=== PATIENT | male | born 1975 | race Caucasian/White ===

== ENCOUNTER 2018-07-03 09:59 | Emergency (ER) | payer OTHER ==
[~2018-07-03] VITALS: Ht 170.2 cm; Wt 87.2 kg
[2018-07-03] MEDS ORDERED: METFORMIN HCL500 MG PO (10:59)
[2018-07-03] MEDS ORDERED: LISINOPRIL10 MG PO (10:59)
[2018-07-03] MEDS ORDERED: METOPROLOL TART25 MG PO (10:59)
[2018-07-03] MEDS ORDERED: HIBICLENS120 ML TOP (10:59)
[2018-07-03] MEDS ORDERED: BACTRIM DS TAB1 EACH PO (10:59)
== END 2018-07-03 11:00 | disposition home or self-care (01) ==
LOC: FSED 10:08
DX: L02.214 Cutaneous abscess of groin (principal); L40.0 Psoriasis vulgaris; E11.65 Type 2 diabetes mellitus with hyperglycemia; I10 Essential (primary) hypertension
CPT/HCPCS: 99283

== ENCOUNTER 2018-07-05 08:59 | Emergency (ER) | payer OTHER ==
[~2018-07-05] VITALS: Ht 170.2 cm; Wt 87.1 kg
[~2018-07-05 08:59] MED LIST: BACTRIM DS TAB1 EACH PO; HIBICLENS120 ML TOP; LISINOPRIL10 MG PO; METFORMIN HCL500 MG PO; METOPROLOL TART25 MG PO
[2018-07-05 10:16] VITALS: BP 148/90
== END 2018-07-05 09:45 | disposition home or self-care (01) ==
LOC: FSED 08:59
DX: L02.214 Cutaneous abscess of groin (principal); L40.9 Psoriasis, unspecified
CPT/HCPCS: 87071; 87186; 87205; 99282

== ENCOUNTER → 2023-04-30 | Outpatient (CLI) | payer OTHER | LOC: RAD 08:31 | PROVIDERS: ATTEND Family Medicine | DX: R94.31 Abnormal electrocardiogram [ECG] [EKG] (principal) | CPT/HCPCS: 93306 ==